=== PATIENT | male | born 1960 | race Caucasian/White ===

== ENCOUNTER → 2021-08-17 | Outpatient (CLI) | payer OTHER ==
[2021-08-18 08:14] LABS: COMPLEMENT C3, SERUM 138 mg/dL (82-167); COMPLEMENT C4, SERUM 18 mg/dL (12-38); HBSAG SCREEN Negative (Negative); HCV AB <0.1 (0.0-0.9); HEP B CORE AB, TOT Negative (Negative); RHEUMATOID ARTHRITIS FACTOR 63.6 IU/mL (0.0-13.9)
== END ==
LOC: LAB 13:00
PROVIDERS: Nurse Practitioner Family
DX: Z11.59 Encounter for screening for other viral diseases (principal); M25.562 Pain in left knee; M79.10 Myalgia, unspecified site; L93.0 Discoid lupus erythematosus; Z79.899 Other long term (current) drug therapy; R93.6 Abnormal findings on diagnostic imaging of limbs
CPT/HCPCS: 36415; 73560; 82550; 83520; 85652; 86140; 86160; 86162; 86200; 86431; 86704; 86803; 87340

== ENCOUNTER → 2021-08-19 | Outpatient (CLI) | payer OTHER ==
[2021-08-27 04:09] LABS: QUANTIFERON MITOGEN VALUE >10.00 IU/mL (.); QUANTIFERON NIL VALUE 0.93 IU/mL (.); QUANTIFERON TB1 AG VALUE 1.11 IU/mL (.); QUANTIFERON TB2 AG VALUE 0.67 IU/mL (.); QUANTIFERON-TB GOLD PLUS Negative (Negative)
== END ==
LOC: LAB 11:01
PROVIDERS: Internal Medicine
DX: Z11.59 Encounter for screening for other viral diseases (principal); M25.50 Pain in unspecified joint; M79.10 Myalgia, unspecified site; L93.0 Discoid lupus erythematosus; Z79.899 Other long term (current) drug therapy
CPT/HCPCS: 36415; 81001; 82570; 84156